=== PATIENT | female | born 1995 | race African-American/Black ===

== ENCOUNTER 2022-11-30 18:25 | Emergency (ER) | payer OTHER ==
[~2022-11-30] VITALS: Ht 167.6 cm; Wt 81.6 kg
[2022-11-30 18:26] VITALS: BP 139/91
--- NOTE | 2022-11-30 18:33 | NUR ---
27 yo/f presents to ED w c/o upper abdominal pain x2.5 hours, +n/v (blood). pt took tums at home, pt was given 4mg zofran odt [employer]. pmh: denies allergies: denies
[2022-11-30] MEDS ORDERED: NACL 0.9% 1,000 ML IV ONE (19:05)
[2022-11-30] MEDS ORDERED: diphenhydrAMINE 50 MG/ML VIAL IVP ONE (19:05)
[2022-11-30] MEDS ORDERED: HALOPERIDOL IM 5 MG/ML VIAL IVP ONE (19:05)
--- NOTE | 2022-11-30 19:16 | NUR ---
PT REPORT TO CHEN [facility]
[2022-11-30 19:29] LABS: BASOPHILS # (AUTO) 0.1 K/uL (0.00-0.22); BASOPHILS % (AUTO) 0.4 % (0.0-2.0); EOSINOPHILS # (AUTO) 0.1 K/uL (0-0.4); EOSINOPHILS % (AUTO) 0.6 % (0.0-4.0); HEMATOCRIT 40.1 % (36-48); HEMOGLOBIN 13.7 g/dL (12.0-16.0); LYMPHOCYTES % (AUTO) 16.7 % (20.5-51.1); MEAN CORPUSCULAR HEMOGLOBIN 30 pg (27-31); MEAN CORPUSCULAR HGB CONC 34 g/dL (33-37); MEAN CORPUSCULAR VOLUME 88.1 fL (80-94); MONOCYTES # (AUTO) 0.6 K/uL (0.8-1.0); MONOCYTES % (AUTO) 4.7 % (1.7-9.3); NEUTROPHILS # (AUTO) 9.4 K/uL (1.8-7.7); NEUTROPHILS % (AUTO) 77.6 % (42.2-75.2); PLATELET COUNT (AUTO) 273 K/uL (140-450); RED BLOOD CELL COUNT(AUTO) 4.55 MIL/uL (4.20-5.40); RED CELL DISTRIBUTION WIDTH 12.9 % (11.6-13.7); WHITE BLOOD COUNT (AUTO) 12.1 K/uL (4.8-10.8)
[2022-11-30 19:50] LABS: BARBITURATE, URINE NEGATIVE ng/ml (NEG <=200); BENZODIAZEPINE, URINE NEGATIVE ng/mL (NEG <=200); CANNABINOID, URINE NEGATIVE ng/mL (NEG <=50); COCAINE, URINE NEGATIVE ng/mL (NEG <=300); OPIATE, URINE NEGATIVE ng/mL (NEG <=2000); PHENCYCLIDINE SCREEN,URINE NEGATIVE ng/mL (NEG <=25)
--- NOTE | 2022-11-30 19:50 | NUR ---
pt is resting asking for more blanket. item is provided.
[2022-11-30 19:54] LABS: ALBUMIN 3.8 g/dL (3.4-5.0); ANION GAP 12.1 (8-16); CARBON DIOXIDE 27.6 mmol/L (21-32); CREATININE 0.8 mg/dL (0.6-1.3); POTASSIUM 3.7 mmol/L (3.5-5.1); TOTAL BILIRUBIN 0.2 mg/dL (0.0-1.0)
[2022-11-30] MEDS ORDERED: cefTRIAXone 2,000 MG in DEXTROSE 5% 100 ML IV ONE (21:30)
[2022-11-30] MEDS ORDERED: cefTRIAXone 2,000 MG VIAL ONE (22:26)
--- NOTE | 2022-12-01 02:28 | NUR ---
[facility] FROM [facility] PROVIDED [id number] FORE REPORT, ACCEPTED, PT GOING TO ROOM 410
[2022-12-01 02:37] VITALS: BP 103/61
--- NOTE | 2022-12-01 02:37 | NUR ---
Patient to be transferred to [facility]. Is being transferred due to appendictis. Receiving facility has accepting physician and available space. ER physician has signed transfer form. Patient or responsible libertarian has agreed to transfer and signed form. Patient belongings inventoried and will be sent with patient. Copy of nursing notes, lab reports, EKG, Physicians Orders and X-rays to be sent with patient. Report called to kimberlee at receiving facility. [facility] has been called for transfer. ETA is 25
--- NOTE | 2022-12-01 02:40 | NUR ---
[facility] BEDSIDE FOR TRANSPORT
--- NOTE | 2022-12-01 02:51 | NUR ---
[facility] DEPARTED FROM FACILITY FOR TRANSFER
== END 2022-12-01 02:51 | disposition short-term general hospital (02) ==
LOC: MED 18:25
DX: K35.80 Unspecified acute appendicitis (principal); Z20.822 Contact with and (suspected) exposure to COVID-19; Z79.899 Other long term (current) drug therapy
CPT/HCPCS: 36415; 74176; 80053; 80305; 81025; 85025; 87040; 87426; 96365; 96367; 96375; 99285; J0696; J1200; J1630; J7030